=== PATIENT | male | born 1955 | race Caucasian/White ===

== ENCOUNTER 2023-04-23 16:14 | Emergency (ER) | payer MEDICAID ==
[~2023-04-23] VITALS: Ht 162.6 cm; Wt 102.1 kg
[2023-04-23 16:29] VITALS: BP 111/68; PULSE 119; RESP 20; TEMP 99.8; O2SAT 97
--- NOTE | 2023-04-23 16:33 | NUR ---
PT ARRIVED WITH 18G IV, 250ML BAG INFLUSING AT ARRIVAL.
--- NOTE | 2023-04-23 16:33 | NUR ---
67YO M ELINOR WAS FOUND ON FLOOR AT [facility], C/O GENERALIZED WEAKNESS. PT STATES HE WAS WALKING AND FELT WEAK, SAT ON FLOOR AND DOESN'T REMEMBER HOW HE ARRIVED HERE. A/OX3, PT STATES THIS PLACE DOES NOT LOOK LIKE [address]. PT DENIES INJURY, N,V,D,C, FEVER, CHILLS, FLU SYMPTOMS, THOMAS, URINARY SYMPTOMS. SKIN INTACT/DRY. 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 SAFETY MAINTAINED. HX; DM, HTN
[2023-04-23 16:45] VITALS: BP 113/63; PULSE 76; RESP 16; TEMP 98.6; O2SAT 99
[2023-04-23] MEDS ORDERED: NACL 0.9% 1,000 ML IV ONE ×2 (16:45→17:45)
--- NOTE | 2023-04-23 17:01 | NUR ---
PT PULLED IV OUT, PT CONFUSED, STATES "WHY AM I STILL AT [address] AND WHY DID THEY PUT THIS THING ON MY ARM.
[2023-04-23 17:13] LABS: HEMATOCRIT 33.4 % (36-52); HEMOGLOBIN 11.6 g/dL (12.0-18.0); MEAN CORPUSCULAR HEMOGLOBIN 31 pg (27-31); MEAN CORPUSCULAR HGB CONC 35 g/dL (33-37); MEAN CORPUSCULAR VOLUME 89.3 fL (80-94); PLATELET COUNT (AUTO) 61 K/uL (140-450); RED BLOOD CELL COUNT(AUTO) 3.74 MIL/uL (4.20-6.10); RED CELL DISTRIBUTION WIDTH 14.4 % (11.6-13.7); WHITE BLOOD COUNT (AUTO) 4.8 K/uL (4.8-10.8)
[2023-04-23 17:25] LABS: ALBUMIN 2.6 g/dL (3.4-5.0); CARBON DIOXIDE 18.8 mmol/L (21-32); CREATININE 1.4 mg/dL (0.6-1.3); POTASSIUM 3.8 mmol/L (3.5-5.1); TOTAL BILIRUBIN 2.1 mg/dL (0.0-1.0)
[2023-04-23 17:32] LABS: APPEARANCE,URINE CLEAR (CLEAR); BILIRUBIN,URINE NEGATIVE (NEGATIVE); BLOOD, URINE 1+ (NEGATIVE); COLOR,URINE ORANGE (YELLOW); LEUKOCYTE ESTERASE ,URINE NEGATIVE (NEGATIVE); NITRITE, URINE NEGATIVE (NEGATIVE); UGLUCOSE 3+ (NEGATIVE)
[2023-04-23 17:36] LABS: LYMPHOCYTES % (MANUAL) 21 % (20-46); MONOCYTES % (MANUAL) 5 % (5-12); PROMYELOCYTES % 1 % (0-0)
[2023-04-23 17:37] LABS: MAGNESIUM 1.7 mg/dL (1.8-2.4)
[2023-04-23 17:43] LABS: BARBITURATE, URINE NEGATIVE ng/ml (NEG <=200); BENZODIAZEPINE, URINE NEGATIVE ng/mL (NEG <=200); CANNABINOID, URINE NEGATIVE ng/mL (NEG <=50); COCAINE, URINE NEGATIVE ng/mL (NEG <=300)
[2023-04-23 17:44] LABS: OPIATE, URINE NEGATIVE ng/mL (NEG <=2000); PHENCYCLIDINE SCREEN,URINE NEGATIVE ng/mL (NEG <=25)
--- NOTE | 2023-04-23 18:24 | NUR ---
IV REESTABLISHED, 20G ON LT AC. PT SOILED WITH URINE/BM. SHEETS/GOWN CHANGED, PT CLEANED WITH SOAPY WATER AND PLACED IN DIAPER. PT STATES HE DID NOT FEEL PEEING OR HAVING A BM.
--- NOTE | 2023-04-23 18:37 | NUR ---
PT IN CT
--- NOTE | 2023-04-23 18:48 | NUR ---
PT BACK FROM CT
--- NOTE | 2023-04-23 19:39 | NUR ---
Pt report given to ISABELA MARTINEZ. ALL QUESTIONS ANSWERED Transfer of care at this time.
--- NOTE | 2023-04-23 20:52 | NUR ---
PT GAVE CONSENT TO SPEAK WITH SON ODIN DO FOR UPDATE. THE SON STATED HE'S COMING TO SEE HIS DAD AND HE HAS BEEN CALLING AROUND LOOK FOR HIM.
--- NOTE | 2023-04-23 21:52 | NUR ---
Patient discharged with v/s stable. Written and verbal after care instructions given and explained. Patient verbalized understanding. Ambulatory with steady gait. All questions addressed prior to discharge. Advised to follow up with PMD.
--- NOTE | 2023-04-24 05:00 | NUR ---
The patient's care was reviewed and supervised by Remedios Rodas RN.
== END 2023-04-23 21:52 | disposition home or self-care (01) ==
LOC: MED 16:14
DX: R53.1 Weakness (principal); E86.0 Dehydration; T67.5XXA Heat exhaustion, unspecified, initial encounter; K76.9 Liver disease, unspecified; X58.XXXA Exposure to other specified factors, initial encounter; Y93.89 Activity, other specified; Y92.89 Other specified places as the place of occurrence of the external cause; Y99.8 Other external cause status
CPT/HCPCS: 36415; 70450; 71045; 80053; 80305; 81001; 82550; 83605; 83735; 83880; 84100; 84443; 84484; 85025; 87040; 93005; 96360; 96361; 99285; G0482; J7030